=== PATIENT | male | born 2000 | race African-American/Black ===

== ENCOUNTER 2025-03-25 16:46 | Emergency (ER) | payer MEDICAID, SELFPAY ==
--- NOTE | 2025-03-25 | ECG_ITS ---
Test Reason : cp Blood Pressure : */* mmHG Vent. Rate : 57 BPM Atrial Rate : 57 BPM P-R Int : 162 ms QRS Dur : 78 ms QT Int : 364 ms P-R-T Axes : 37 25 35 degrees QTcB Int : 354 ms Sinus bradycardia with sinus arrhythmia Diffuse ST elevations markos repolarization vs pericarditis Abnormal ECG No previous ECGs available Referred By: Generic ED Physician Electronically Signed By: Antonio Barton
--- NOTE | 2025-03-25 17:49 | PC.NURSE ---
pt had an EKG and when he was called to be triaged he was not in the WR, this nurse checked with the triage tech and the patient had stated he was going outside, this nurse attempted to call patient a second time without him responding, also looked outside. pt left without being seen
== END 2025-03-25 18:06 | disposition left against medical advice (07) ==
PROVIDERS: Emergency Provider Emergency Medicine
DX: R07.9 Chest pain, unspecified (principal); Z53.21 Procedure and treatment not carried out due to patient leaving prior to being seen by health care provider
CPT/HCPCS: 93005; 99281; 99282

== ENCOUNTER → 2025-03-25 16:52 | Outpatient (BNV) | payer MEDICAID, SELFPAY | PROVIDERS: Emergency Provider Emergency Medicine; Visit Provider Internal Medicine Cardiovascular Disease | DX: R00.1 Bradycardia, unspecified (principal) | CPT/HCPCS: 93010 ==

== ENCOUNTER 2025-04-09 09:32 | Emergency (ER) | payer MEDICAID, SELFPAY ==
--- OUTSIDE RECORDS SUMMARY | 2014-11-03 11:55 | XMS_ITS | Continuity of Care Document ---
Author Organization [facility] Address [address] [place] [address] Phone Care Team Providers Care Extrusion Die Repair Manager Name Role Phone Unavailable Unavailable Unavailable Medications Medication Instructions Dosage Effective Dates (start - stop) Status Comments Polytrim 0.1 %-10,000 unit/mL Eye Drops 1 drop by Ophthalmic route every 3 hours for 7 day(s) - Active nystatin 100,000 unit/g Topical Powder SIG: applied topically 3 times a day for 7 day(s) - Active Polytrim ophthalmic SI gtt in each affected eye every 3 to 6 hours for 7 day(s) - Active Claritin 5 mg/5 mL Oral Soln SI mL orally once a day for 30 day(s) - Active Procedures Procedure Date EST EXPANDED HEARING SCREEN VISION SCREENING HEMOGLOBIN (IH) 2-18yrs PREV EST 5- EST EXPANDED EST EXPANDED EST DETAILED EST EXPANDED EST EXPANDED AIRWAY INHALATION TREATM EST EXPANDED EST DETAILED AIRWAY INHALATION TREATM URINALYSIS, NON-AUTOMATE PREV EST 5- HEMOGLOBIN COUNT, COLORI EST EXPANDED EST EXPANDED EST EXPANDED EST EXPANDED PURE TONE HEARING TEST, AIR Oct-19-2007 INTERMED EYE EXAM, ESTAB TB INTRADERMAL TEST HEMOGLOBIN COUNT, COLORI URINALYSIS, NON-AUTOMATE CHICKEN POX (VARICELLA) IMMUNIZATION ADMINISTRAT PREV EST 5-11 EST EXPANDED EST EXPANDED Advance Directives Directive Yes / No Effective Date File Name No Information Encounters Encounter Description Practice Location Reason(s) For Visit Diagnoses Date Provider Providers Copied on Encounter [facility], [address] [place] [address], [address], [place] tel:[phone] [facility] Adolescent Health No Information 5 No Information [facility], [address] [place] [address], [address], [place] tel:[phone] Historic Immunization Location No Information 3 No Information [facility], [address] [place] [address], [address], [place] tel:[phone] Conversion No Information 2 No Information [facility], [address] [place], [address], [place] tel:[phone] Conversion No Information 0 1 No Information [facility], [address] [place], [address], [place] tel:[phone] Conversion DYSURIA 8 0 No Information EST EXPANDED [facility], [address] [place], [address], [place] tel:[phone] [facility] No Information 0 No Information PREV EST 01-10 [facility], [address] [place], [address], [place] tel:[phone] [facility] Pediatrics No Information 0 No Information [facility], [address] [place], [address], [place] tel:[phone] Conversion OTHER SPECIFIC DEVELOPMENTAL LEARNING DIFFICULTIES 0 No Information [facility], [address] [place] [address], [address], [place] tel:[phone] Conversion BALANITIS XEROTICA OBLITERANS 9 No Information EST [facility], [address] [place] [address], [address], [place] tel:[phone] [facility] Pediatrics No Information 9 No Information EST [facility], [address] [place] [address], [address], [place] tel:[phone] [facility] Pediatric[facility] No Information 0 9 No Information [facility], [address] [place] [address], [address], [place] tel:[phone] 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 May-0 9 No Information [facility], [address] [place] [address], [address], [place] tel:[phone] Conversion INSECT BITE WITHOUT INFECTIONABDO DENVER PAIN GENERALIZED 9 No Information EST [facility], [address] [place] [address], [address], [place] tel:[phone] [facility] No Information 9 No Information EST [facility], [address] [place] [address], [address], [place] tel:[phone] [facility] No Information 9 No Information [facility], [address] [place] [address], [address], [place] tel:[phone] Conversion CERUMEN IMPACTION 0 9 No Information [facility], [address] [place] [address], [address], [place] tel:[phone] Conversion RASH - NONSPECIFICTI ETZE'S DISEASE Dec-0 200 9 No Information EST EXPANDED [facility], [address] [place] [address], [address], [place] tel:[phone] [facility] No Information 0 200 9 No Information [facility], [address] [place] [address], [address], [place] tel:[phone] Conversion PNEUMONIA ORGANISM UNSPECIFIED Feb-0 200 9 No Information EST [facility], [address] [place] [address], [address], [place] tel:[phone] [facility] No Information Feb-0 4-200 9 No Information EST DETAILED [facility], [address] [place] [address], [address], [place] tel:[phone] [facility] No Information Feb-0 2-200 9 No Information [facility], [address] [place] [address], [address], [place] tel:[phone] Conversion ACUTE UPPER RESPIRATORY INFECTIONS OF UNSPECIFIED SITEASTHMA UNSPECIFIED Feb-0 2-200 9 No Information PREV EST -11 [facility], [address] [place] [address], [address], [place] tel:[phone] [facility] No Information Dec-0 8-200 8 No Information [facility], [address] [place] [address], [address], [place] tel:[phone] Conversion ATTENTION DEFICIT DISORDER OF CHILDHOOD WITH HYPERACTIVITY OTHER SPECIFIED COUNSELING Dec-0 8-200 8 No Information [facility], [address] [place] [address], [facility], [place] tel:[phone] 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-2 4-200 8 No Information EST [facility], [address] [place] [address], [address], [place] tel:[phone] [facility] No Information Nov-2 4-200 8 No Information EST [facility], [address] [place] [address], [address], [place] tel:[phone] [facility] No Information Sep-0 8-200 8 No Information EST [facility], [address] [place] [address], [address], [place] tel:[phone] [facility] No Information Ian-0 9-200 8 No Information [facility], [address] [place] [address], [address], [place] tel:[phone] Conversion OPEN WOUND OF FOOT EXCEPT TOE(S) ALONE WITHOUT COMPLICATION Apr-0 1-200 8 No Information EST [facility], [address] [place] [address], [address], [place] tel:[phone] [facility] No Information Apr-0 1-200 8 No Information PREV EST 5-11 [facility], [address] [place] [address], [address], [place] tel:[phone] [facility] No Information 7 No Information [facility], [address] [place], [address], [place] tel:[phone] Conversion ROUTINE OR CHILD HEALTH CHECK 7 No Information EST [facility], [address] [place], [address], [place] tel:[phone] [facility] No Information 7 No Information [facility], [address] [place], [address], [place] tel:[phone] Conversion CONJUNCTIVITI S UNSPECIFIED 7 No Information [facility], [address] [place] [address], [address], [place] tel:[phone] Conversion OTHER CHRONIC ALLERGIC CONJUNCTIVITI S 6 No Information EST [facility], [address] [place] [address], [facility], tel:[phone] [facility] No Information 6 No Information Family History Family Member Type Diagnosis Age At Onset No Information Immunizations Vaccine Date Status Comments TDAP VACCINE >7 IM administered Source: N ew Immunization Record HEP A VACC, PED/ADOL, 2 DOSE administered Source: New Immunization Record MENINGOCOCCAL VACCINE, IM administered So urce: New Immunization Record IMMUNIZATION ADMINISTRAT administered Pam rce: New Immunization Record CHICKEN POX (VARICELLA) administered Sour ce: New Immunization Record IMADM ANY ROUTE 1ST VAC/TOX administered Source: New Immunization Record Payers Payer name Insurance type Covered alliance party ID Authoriza tion(s) No Information Social History Type Description Quantity Date Captured Comments Sex Male Smoking Status No Information Chief Complaint And Reason For Visit No Information Reason For Referral Reason For Referral No Information History Of Present Illness Encounter Date Complaint History Of Prese nt Illness No Information Functional Status Date Functional Assessmen t No Information Instructions Date Instruction Additional Infor mation No Information Assessments Type Assessment Date No Information Patient Care Teams Name Effective Dates (start - stop) Status Members No Information
--- OUTSIDE RECORDS SUMMARY | 2024-10-19 12:00 | XMS_ITS ---
Author Organization [facility] enter Address [address] [place] [id number] Care Team Providers Care Roll Cutter Name Role Phone Ayon, Leonie Unavailable [phone] REASON FOR VISIT Allergies Encounters Encounter Location Date Provider Diagnosis [facility] [address] [place] [id number] 10/19/2024 Leonie Ayon Plan Of Treatment No Information Progress Notes * Dawna WALKERsDOB: 1 (24 yo M)Acc No.[id number]:10/19/2024 Progress Note Patient: Luc MCCORD Provider: Katlyn Ayon :2000 A ge:23 Y S ex:Male Date:10/19/2024 Address:[address] [place] [address] Subjective: * Chief Complaints: * 1 . Allergies. * Medical History: * Implants: Objective: * Vitals: Assessment: Plan: * Treatment: * Images: Billing Information: * Visit Code: * Procedure Codes: * Electronic signature of Cong Ayon on 04/09/2025 at 10:31 AM EDT Sign off status: Pending * Provider: Katlyn Ayon Date: 10/19/2024 Generated for Obinna dee/Sandro/eTransmitting on: 04/09/2025 10:31 AM EDT
--- NOTE | ~2025-04-09 | XR_ITS ---
EXAMINATION: XR CHEST CLINICAL INFORMATION: R side chest pain COMPARISON: None available. TECHNIQUE: Frontal view of the chest was obtained. FINDINGS: No consolidation, pleural effusion or pneumothorax. No hyperinflation. Cardiomediastinal silhouette size is normal. Mild S-shaped curvature of the thoracic spine. XR/XR chest 1V IMPRESSION: No acute airspace disease. Mild scoliosis. Electronically signed by: Lane Ng MD 04/09/2025 11:12 AM EDT
--- NOTE | 2025-04-09 09:37 | ECG_ITS ---
Test Reason : CP Blood Pressure : */* mmHG Vent. Rate : 72 BPM Atrial Rate : 72 BPM P-R Int : 154 ms QRS Dur : 78 ms QT Int : 334 ms P-R-T Axes : 35 9 35 degrees QTcB Int : 365 ms Sinus rhythm with marked sinus arrhythmia Possible Acute pericarditis Abnormal ECG When compared with ECG of 25-Mar-2025 16:52, No significant change was found Referred By: Generic ED Physician Electronically Signed By: JULISSA ALCARAZ
[2025-04-09 09:56] VITALS: BP 128/63; PULSE 73; RESP 15; TEMP 36.6; O2SAT 99
--- NOTE | 2025-04-09 10:04 | ED.CHESTPAIN ---
HPI - Chest Pain General Chief Complaint: Chest Pain Stated Complaint: Chest Pain Time Seen by Provider: 04/09/25 09:53 Source: patient and RN notes reviewed Mode of arrival: EMS History of Present Illness ED Provider: Taylor Barrett PA-C HPI narrative: 24-year-old male without significant medical history presents to the ED today due to chest pain. Patient states over the last 3 weeks he has been noticing chest pain that is worse after smoking marijuana, and is accompanied by episodes of anxiety. Patient states he woke up this morning around 6:00 a.m. when he noticed a right side chest pain that he describes as ?pressure?, which has been constant since awakening. Patient denies radiation, is unsure of what makes chest pain worse. Patient denies recent illness, increased physical activity. 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 Patient denies shortness of breath, fever, chills, nausea, vomiting Related Data Previous Rx's ?Medication ?Instructions ?Recorded colchicine 0.6 mg capsule 0.6 mg PO BID 2 weeks #28 caps 04/09/25 ibuprofen 600 mg tablet 600 mg PO TID 2 weeks #42 tabs 04/09/25 Allergies Allergy/AdvReac Type Severity Reaction Status Date / Time Seasonal Allergies Allergy Eye Verified 04/09/25 10:20 Swelling shellfish derived (shellfish) Allergy Facial Verified 04/09/25 10:20 Swelling Review of Systems Review of Systems: CONST: Negative for fever, body aches and chills. HENT: Negative for neck pain/stiffness, headache, congestion, sore throat, swelling. EYES: Negative for discharge/pain or vision changes. RESP: Negative for cough/hemoptysis and shortness of breath. CV: Negative difficulty breathing, palpitations. POS R sided chest pain ABD: Negative pain, nausea, vomiting. : Negative increase frequency, dysuria, blood in urine or stool. MUSC: Negative for muscle aches, edema. SKIN: Negative rash, lesions/sores. NEURO: Negative headache, dizziness, weakness. Yes all other systems are reviewed and are negative PMFSH Past Medical History Attestation statement: The following information was validated with the patient. Source: old records reviewed and nursing notes reviewed Social History Social History Smoked in Last 30 Days: Yes Use of substances other than those prescribed or required for medical reasons: Yes Substance Use Type: Marijuana Substance Use Frequency: Occasionally Advance Directives: No Advance Directives Information Provided: Yes Do you have a plan to hurt others: No Plan Physical Exam Vital Signs: Vital Signs: Last Vital Signs Temp 98 F 04/09/25 10:19 Pulse 73 04/09/25 10:19 Resp 15 04/09/25 10:19 BP 128/63 04/09/25 10:19 Pulse Ox 99 04/09/25 10:19 O2 Del Method Room Air 04/09/25 10:19 BMI result Body Mass Index 26.6 GENERAL APPEARANCE: ?AxOx4, generally well-appearing, no acute distress. HEENT: ?NC, AT. MMM. EOMI, clear conjunctiva, oropharynx clear. NECK: ?Supple without lymphadenopathy.? No stiffness or restricted ROM. HEART:? Normal rate and regular rhythm, normal S1/S2, no m/r/g LUNGS:? CTAB, moving air well. No crackles or wheezes are heard. ABDOMEN: ?Soft, nontender, nondistended with good bowel sounds heard. BACK: No CVAT, no obvious deformity. EXTREMITIES: ?Without cyanosis, clubbing or edema. NEUROLOGICAL: ?Grossly nonfocal. Alert and oriented, moving all 4 extremities. Observed to ambulate with normal gait. Skin: ?Warm and dry without any rash. Medications Administered Discontinued Medications Generic Name Dose Route Start Last Admin Trade Name Philq PRN Reason Stop Dose Admin Acetaminophen 975 mg 04/09/25 10:48 04/09/25 11:07 Acetaminophen 325 Mg Tablet PO 04/09/25 10:49 975 mg ONCE ONE Administration Ketorolac Tromethamine 15 mg 04/09/25 10:48 04/09/25 11:07 Ketorolac Tromethamine 15 Mg/Ml Vial IM 04/09/25 10:49 15 mg ONCE ONE Administration Medical Decision Making Medical Decision Making MDM Narrative: 24-year-old male without significant medical history presents to the ED today due to chest pain. Patient states over the last 3 weeks he has been noticing chest pain that is worse after smoking marijuana, and is accompanied by episodes of anxiety. Patient states he woke up this morning around 6:00 a.m. when he noticed a right side chest pain that he describes as ?pressure?, which has been constant since awakening. Patient denies radiation, is unsure of what makes chest pain worse. Patient denies recent illness, increased physical activity. 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 VSS, BP of 128/63, pulse rate 73 beats per minute, respiratory rate of 15, patient afebrile with oral temperature of 98?, O2 saturation 99% on room air. Physical exam benign, lungs clear to auscultation bilaterally, cardiac exam reveals normal rate and rhythm, no murmurs/rubs/gallops. Patient states pain is reproducible when I press over the right chest wall. Abdomen soft, nontender, good bowel sounds heard. Lower extremities without pitting edema, no calf tenderness. EKG reveals IL depression, ST-elevation, initial trop undetectable at <2.7 - less likely ACS, however EKG with indication of pericarditis, will do bedside US to evaluate for pericardial effusion. Plan for labs, CXR Medicating patient with 975 mg p.o. Tylenol, 15 mg IM ketorolac Course 12:17- Labs without leukocytosis, H and H stable, no evidence of electrolyte abnormality. ESR CRP WNL. CXR WNL, without evidence of cardiomegaly, pleural effusions, pleural edema, pneumothorax. I did a bedside echo with my colleague Dr. Cordon which was negative for pericardial effusion. Patient states chest pain a right chest is still present, however has improved with 15 mg IM ketorolac, 975 mg Tylenol. Patient stable, no evidence of pericardial effusion, afebrile we will discharge home with diagnosis of pericarditis due to 3 weeks of chest pain and treat with 2 weeks of 600 mg ibuprofen and 0.6 kg colchicine. Patient does not have PCP, will provide referrals for establishment. I counseled patient on strict return precautions. He is in agreement, and understanding of the plan. Differential Diagnosis Differential Diagnoses: The differential diagnosis associated with the presentation includes Pericarditis ACS Costochondritis Pneumothorax Admission/Observation Consideration of admission/observation: Escalation of care including admission/observation considered Patient is stable for discharge, afebrile, subacute course over last 3 weeks, hemodynamically stable, no pericardial effusion seen on echo, patient without you immunosuppression, no ILIA use, no acute trauma, troponin flat, does not need hospitalization for care. Lab Data MDM Lab Attestation statement: I reviewed the patient's lab results. 04/09/25 11:32 04/09/25 11:32 Labs: Lab Results 04/09/25 04/09/25 Range/Units 10:44 11:32 WBC 6.1 (4.8-10.8) X10*3/uL RBC 5.16 (4.60-5.80) X10*6/uL Hgb 15.1 (14.0-18.0) g/dl Hct 44.8 (42.0-52.0) % MCV 86.8 (80.0-98.0) fL MCH 29.3 (27.0-33.0) pg MCHC 33.7 (31.0-36.0) g/dl RDW 12.9 (11.0-16.0) % Plt Count 219 (160-400) X10*3/uL MPV 10.8 (9.4-12.4) fL Immature Gran % (Auto) 0.5 H (0.0-0.4) % Neut % (Auto) 51.0 (45-73) % Lymph % (Auto) 34.8 (20-40) % Deuel % (Auto) 10.9 (2-11) % Eos % (Auto) 2.1 (0-4) % Baso % (Auto) 0.7 (0-2) % Lymph # (Auto) 2.1 (1.2-4.9) X10*3/uL Deuel # (Auto) 0.7 (0.1-1.2) X10*3/uL Eos # (Auto) 0.1 (0.0-0.4) X10*3/uL Baso # (Auto) 0.0 (0.0-0.2) X10*3/uL Abs Immat Gran (auto) 0.03 (0.00-0.03) X10*3/uL Absolute Neuts (auto) 3.1 (2.0-8.3) x10*3/uL Absolute Nucleated RBC 0.000 (0.0-0.012) X10*3/uL Nucleated RBC % (auto) 0.0 (0.0-0.2) /100WBC Sodium 141 (135-145) mmol/L Potassium 3.9 (3.3-5.1) mmol/L Chloride 104 (96-108) mmol/L Carbon Dioxide 31 H (22-29) mmol/L Anion Gap 10 L (12-20) BUN 13 (9-16) mg/dL Creatinine 0.86 (0.5-1.4) mg/dL Estim Creat Clear Calc 119.5 Estimated GFR > 60 Random Glucose 100 (60-115) mg/dL Calcium 9.8 (8.4-10.2) mg/dL Magnesium 1.9 (1.6-2.6) mg/dL Total Bilirubin 1.0 (0.0-1.0) mg/dL AST 37 (5-37) U/L ALT 59 H (0-40) U/L Alkaline Phosphatase 83 (39-117) U/L Troponin I High Sens < 2.7 (<3.5-35.0) ng/L C-Reactive Protein 0.13 (< or = 0.50) mg/dL Total Protein 7.6 (6.5-8.0) g/dL Albumin 4.8 (3.5-5.0) g/dL Independent Interpretation I performed an independent interpretation of an: EKG and Plain X-Ray Interpretation: I personally interpreted the EKG which revealed normal sinus rhythm with IL depression, ST elevations consistent with possible pericarditits Vent. Rate : 72 BPM Atrial Rate : 72 BPM P-R Int : 154 ms QRS Dur : 78 ms QT Int : 334 ms P-R-T Axes : 35 9 35 degrees QTcB Int : 365 ms Sinus rhythm with marked sinus arrhythmia Possible Acute pericarditis Abnormal ECG When compared with ECG of 25-Mar-2025 16:52, No significant change was found I personally interpreted the CXR which does not reveal cardiomegaly, pneumothorax, pleural effusions, pleural edema or infiltrates, I agree with the radiologist's interpretation. Radiology Impression Discussion of test interpretation with radiology: I have reviewed the radiologist's reading. Radiologist Impression: CXR FINDINGS: No consolidation, pleural effusion or pneumothorax. No hyperinflation. Cardiomediastinal silhouette size is normal. Mild S-shaped curvature of the thoracic spine. XR/XR chest 1V IMPRESSION: No acute airspace disease. Mild scoliosis. Electronically signed by: Lnae Ng MD 04/09/2025 11:12 AM EDT RP Dictated By: Lane Torres MD Signed By: <Electronically signed by Lane Rasheed MD in OV> 04/09/25 1112 External Record Review External record reviewed: Inpatient record, Office record and Outpatient record Discharge Plan Discharge Clinical Impression: Pericarditis Patient Disposition: Home, Self-Care Instructions: Acute Pericarditis (ED) Additional Instructions: You were evaluated in the ED today due to 3 weeks of chest pain. Your EKG revealed a pattern consistent with acute pericarditis which is an inflammation of the sac-like tissue that contains your heart. I believe this is what has been causing your symptoms. Your labs did not reveal any indication of infection, or electrolyte abnormality. Your troponin which is an enzyme that your heart gives off when under stress or damage was negative. Your chest x-ray did not reveal any acute cardiopulmonary process. Your bedside echocardiogram did not reveal any fluid around your heart. Treatment for pericarditis includes high dose NSAIDs such as ibuprofen, and a medication called colchicine which is an anti-inflammatory medication. These medications together we will treat the inflammation causing her pain. You are being prescribed a 2 week course of 600 mg ibuprofen and 0.6 mg of colchicine. I will provide referrals for primary care providers, you need to call their office they will not call you. Please return to the emergency department if you experience fevers over 100.4?, worsening chest pain, chest pain that is worse when lying down, difficulty breathing, shortness of breath, palpitations, black/tarry stools, weakness, or any other new/worsening/concerning symptoms. Prescriptions: New ibuprofen 600 mg tablet 600 mg PO TID 14 Days Qty: 42 0RF colchicine 0.6 mg capsule 0.6 mg PO BID 14 Days Qty: 28 0RF Referrals: [facility] [Provider Group, Family Practice] [facility] [Provider Group, Family Practice] Print Language: Yi
[2025-04-09 10:19] VITALS: BP 128/63; PULSE 73; RESP 15; TEMP 36.6; O2SAT 99; BMI 26.6
--- OUTSIDE RECORDS SUMMARY | 2025-04-09 10:31 | XMS_ITS | Clinical Summary ---
Author Organization [facility] Address [address] [place] [address] Care Team Providers Care Liner Helper Name Role Phone Unavailable Primary Care Provider Unavailabl e Allergies Active Allergy Reactions Criticality Noted Date Comments Shrimp 05/08/2019 Medications No known medications Active Problems No known active problems Immunizations Name Administration Dates Next Due HPV 9 Valent 06/26/2017,11/16/2015 Influenza Quad (Fluarix/Fluz one/FluLaval) 0.5mL (SD-IIV4) 06/26/2017 Influenza Quad (Flumist) 0.2mL 2-49 Yrs (LAIV4) 11/16/2015,11/03/2014 Tdap 06/27/2023 Social History Tobacco Use Types Packs/Day Years Used Date Smoking Tobacco: Never Smokeless Tobacco: Never Alcohol Use Standard Drinks/Week Comments No 0 (1 standard drink = 0.6 oz pur e alcohol) Sex and Gender Information Value Date Recorded Sex Assigned at Male 05/08/2019 10:35 AM EDT Gender Identity Not on file Sexual Orientation Not on file Job Start Date Occupation Industry Not on file Not on file Not on file Last Filed Vital Signs Vital Sign Reading Time Taken Comments Blood Pressure 119/74 03/30/2024 1:21 PM EDT Pulse 89 03/30/2024 1:21 PM EDT Temperature 36.8 C (98.2 F) 03/30/2024 1:21 PM EDT Respiratory Rate 16 03/30/2024 1:21 PM EDT Oxygen Saturation 99% 03/30/2024 1:21 PM EDT Inhaled Oxygen Concentration - - Weight 72.1 kg (159 lb) 03/30/2024 1:21 PM EDT Height 167.6 cm (5' 6 ) 03/30/2024 1:21 PM EDT Body Mass Index 25.66 03/30/2024 1:21 PM EDT Plan of Treatment Health Maintenance Due Date Last Done Comments COVID-19 Vaccine (#1) 06/02/2001 Depression Screening 2012 BMI Counseling 2018 Preventative Health Evaluation 2018 Influenza Vaccine (#1) 2025 7, 06/26/2017, 11/16/2015, Additional history exists DTap / Tdap / Td (8 - Td or Tdap) 06/27/2033 06/27/2023, 09/05/2012, 04/16/2005, Additional history exists Hepatitis B Vaccines Completed 06/16/2001, 01/08/2001, 2000 Pneumococcal Vaccine Completed 03/24/2002, 06/16/2001, 04/15/2001, Additional history exists Hepatitis C Screening Completed 03/30/2024 RSV Ped < 20 months Aged Out No longe r eligible based on patient's age to complete this topic
--- OUTSIDE RECORDS SUMMARY | 2025-04-09 10:31 | XMS_ITS ---
Author Name [facility] Organization Unknown Results Test Name/Text Value Interpretation Date Range Source N GONORRHOEA RRNA UR QL PCR NEGATIVE Normal 04/01/2024 - [facility] C TRACH RRNA UR QL PCR NEGATIVE Normal 04/01/2024 - [facility] N GONORRHOEA RRNA UR QL PCR NEGATIVE Normal 02/19/2024 - [facility] C TRACH RRNA UR QL PCR NEGATIVE Normal 02/19/2024 - [facility] Allergies Allergen Reaction Severity Comment Documented Date Source Statu s [facility]/29/2018 [facility] active Problems Problem Status Onset Date Problem Type Date of Resolution Source Screening examination for STI active EncounterDiagnosisAct CTTHNEM Immunizations Vaccine Date Source Lot Number Status Tdap 06/27/2023 [facility] [id number] completed MCV4 04/29/2018 [facility] [id number] completed mening[id number] 9 Valent 06/26/2017 [facility] [id number] completed HPV, unspecified formulation 06/26/2017 [facility] completed Influenza Quad (Fluarix/Fluz one/FluLaval) 0.5mL (SD-IIV4) 06/26/2017 [facility] [id number] completed Influenza, seasonal, injecta ble, preservative free 06/26/2017 [facility] completed HPV 9 Valent 11/16/2015 [facility] [id number] completed HPV, unspecified formulation 11/16/2015 [facility] completed Influenza Quad (Flumist) 0.2 mL 2-49 Yrs (LAIV4) 11/16/2015 [facility] [id number] completed seasonal influenza, intrader mal, preservative free 11/16/2015 [facility] completed Influenza Quad (Flumist) 0.2 mL 2-49 Yrs (LAIV4) 11/03/2014 [facility] [id number] completed influenza virus vaccine, uns pecified formulation 11/03/2014 [facility] completed Hep A (ped/adol, 2 dose) 09/05/2012 [facility] completed meningococcal ACWY vaccine, unspecified formulation 09/05/2012 [facility] completed Tdap 09/05/2012 [facility] completed Hep A (ped/adol, 2 dose) 09/22/2009 [facility] completed Varicella 06/20/2007 [facility] completed DTaP (younger than 7 yrs) 04/16/2005 [facility] completed MMR 04/16/2005 [facility] completed polio, inactive 04/16/2005 [facility] completed DTaP (younger than 7 yrs) 05/13/2002 [facility] completed polio, inactive 05/13/2002 [facility] completed MMR 03/24/2002 [facility] completed pneumococcal conjugate vaccine, 13 valent 03/24/2002 [facility] completed Varicella 03/24/2002 [facility] completed DTaP (younger than 7 yrs) 06/16/2001 [facility] completed Haemophilus influenzae type b vaccine, conjugate unspecified formulation 06/16/2001 [facility] completed Hep B (ped/adol, 3 dose) 06/16/2001 [facility] completed pneumococcal conjugate vaccine, 13 valent 06/16/2001 [facility] completed DTaP (younger than 7 yrs) 04/15/2001 [facility] completed Haemophilus influenzae type b vaccine, conjugate unspecified formulation 04/15/2001 [facility] completed pneumococcal conjugate vaccine, 13 valent 04/15/2001 [facility] completed polio, inactive 04/15/2001 [facility] completed DTaP (younger than 7 yrs) 02/13/2001 [facility] completed Haemophilus influenzae type b vaccine, conjugate unspecified formulation 02/13/2001 [facility] completed pneumococcal conjugate vaccine, 13 valent 02/13/2001 [facility] completed polio, inactive 02/13/2001 [facility] completed Hep B (ped/adol, 3 dose) 01/08/2001 [facility] completed Hep B (ped/adol, 3 dose) 2000 [facility] completed Encounters Encounter Type Encounter Reason Primary Diagnosis Location Date [facility] 06/16/2024 [facility] 05/21/2024 Emergency Acute upper respiratory infection, unspecified Acute upper respiratory infection, [place] [facility] Laceration without foreign body of unspecified hand, initial encounter Laceration without foreign body of unspecified hand, [place] [facility] [place] Care Team Organization Name Specialty Phone Email Start Date End Da te [facility] Prompt Panel 06/02/2024 07/05/2024 [facility] 05/22/2024 [facility] 05[place]21[place]2024 [facility] [place] [facility] 01[place]28/2024 [place] [facility] 2023 [facility] [place]/16/2025 [facility] Primary Care 06/27/2023 06/27/2023 [facility] 07/04/2022
[2025-04-09 11:18] LABS: Troponin-I High Sensitivity < 2.7 ng/L (<3.5-35.0)
[2025-04-09 11:45] LABS: Hematocrit 44.8 % (42.0-52.0); Hemoglobin 15.1 g/dl (14.0-18.0); Imm Gran Abs Auto 0.03 X10*3/uL (0.00-0.03); Imm Gran Pct Auto 0.5 % (0.0-0.4); Lymphocytes Absolute Auto 2.1 X10*3/uL (1.2-4.9); Mean Corpuscular HGB Conc 33.7 g/dl (31.0-36.0); Mean Corpuscular Hemoglobin 29.3 pg (27.0-33.0); Mean Corpuscular Volume 86.8 fL (80.0-98.0); NRBC Abs Auto 0.000 X10*3/uL (0.0-0.012); NRBC Pct Auto 0.0 /100WBC (0.0-0.2); Platelet Count 219 X10*3/uL (160-400); Red Blood Count 5.16 X10*6/uL (4.60-5.80); White Blood Count 6.1 X10*3/uL (4.8-10.8)
--- NOTE | 2025-04-09 11:46 | PC.NURSE ---
PAtient presents to Ed c/o chest pain rated 3/10 non radiating. Patient had pain 3 weeks ago but had resolved until today. Denies n/v, sob. Blood collected/sent. CXR mild scoliosis, EKG = possible acute pericarditis. VSS and up to date. Provider in to see patient plan of care on going
[2025-04-09 11:58] LABS: Alanine Aminotransferase 59 U/L (0-40); Albumin Level 4.8 g/dL (3.5-5.0); Alkaline Phosphatase 83 U/L (39-117); Anion Gap 10 (12-20); Aspartate Amino Transferase 37 U/L (5-37); Blood Urea Nitrogen 13 mg/dL (9-16); Calcium 9.8 mg/dL (8.4-10.2); Carbon Dioxide 31 mmol/L (22-29); Chloride 104 mmol/L (96-108); Creatinine Clr Calc Pharmacy 119.5; Estimated Glomerular Filt Rate > 60; Magnesium 1.9 mg/dL (1.6-2.6); Potassium 3.9 mmol/L (3.3-5.1); Sodium 141 mmol/L (135-145); Total Protein 7.6 g/dL (6.5-8.0)
[2025-04-09 12:24] VITALS: BP 121/60; PULSE 70; RESP 15; TEMP 36.8; O2SAT 99
[2025-04-09 12:40] VITALS: BP 121/60; PULSE 70; RESP 15; TEMP 36.8; O2SAT 99
== END 2025-04-09 12:46 | disposition home or self-care (01) ==
PROVIDERS: Emergency Provider Emergency Medicine Emergency Medical Services
DX: I31.9 Disease of pericardium, unspecified (principal); R07.9 Chest pain, unspecified
CPT/HCPCS: 36415; 71045; 80053; 83735; 84484; 85025; 85652; 86140; 93005; 96372; 99284; 99285; J1885

== ENCOUNTER → 2025-04-09 09:37 | Outpatient (BNV) | payer MEDICAID, SELFPAY | PROVIDERS: Emergency Provider Emergency Medicine Emergency Medical Services; Visit Provider Internal Medicine | DX: R94.31 Abnormal electrocardiogram [ECG] [EKG] (principal); R07.9 Chest pain, unspecified | CPT/HCPCS: 93010 ==

== ENCOUNTER → 2025-04-09 10:55 | Outpatient (BNV) | payer MEDICAID, SELFPAY | PROVIDERS: Emergency Provider Emergency Medicine Emergency Medical Services; Visit Provider Radiology Diagnostic Radiology | DX: R07.89 Other chest pain (principal) | CPT/HCPCS: 71045 ==